=== PATIENT | male | born 1960 | race Caucasian/White ===

== ENCOUNTER 2016-09-05 07:46 | Outpatient (CLI) | payer BC ==
--- NOTE | 2016-09-05 09:10 | XRay Report ---
LUMBAR SPINE RADIOGRAPHS: INDICATION: Low back pain. COMPARISON: None similar. FINDINGS: AP, oblique and lateral lumbar spine radiographs demonstrate slight levocurvature apex about L4. Five nonrib-bearing vertebrae demonstrate preserved stature and alignment. Mild degenerative spurring throughout. Moderate mid to lower lumbar facet arthropathy. Mild to moderate L4-L5, L5-S1 and also possibly mild L1-L2 disc narrowing. Mild lower thoracic degenerative spurring as well. No evidence of a pars defect. Nonobstructive bowel gas pattern. Intact SI joints. Right inguinal hernia repair manisha. CONCLUSION: Multilevel spinal degenerative changes and right inguinal hernia repair without acute bony abnormality, as described. Please correlate. Thank you for the opportunity to participate in this patient's care.
--- NOTE | 2016-09-05 09:42 | Cat Scan Report ---
CT NECK WITHOUT CONTRAST INDICATION: Neck pain, possible mass. COMPARISON: None similar. FINDINGS: Noncontrast neck CT demonstrates preserved parapharyngeal fat pads. Small tonsillar calcifications bilaterally. Grossly normal pharynx, hypopharynx and the larynx. Normal size thyroid. Approximately 5 mm right thyroid hypodensity laterally, axial image 149, series 2. Slight aortic arch calcifications. Patent airway. Clear lung apices. No size significant adenopathy with few small neck lymph nodes noted bilaterally. Grossly normal major vessels. Normal salivary glands. Slight nasal septal bowing. Minimal frontoethmoid mucosal thickening. Clear remainder imaged paranasal sinuses and mastoid air cells. Normal eye globes. Normal imaged intracranial appearance. Mild cervical spondylosis. CONCLUSION: No definite acute significant CT abnormality on this unenhanced exam with few incidental findings, as above. Please correlate. Neck CT with contrast and utilizing skin marker may be considered for further evaluation if strong clinical suspicion for underlying pathology persists. Thank you for the opportunity to participate in this patient's care.
== END 2016-09-05 07:47 | disposition home or self-care (01) ==
LOC: CT 07:46
PROVIDERS: ATTEND Internal Medicine
DX: M47.897 Other spondylosis, lumbosacral region (principal); M47.892 Other spondylosis, cervical region; M12.88 Other specific arthropathies, not elsewhere classified, other specified site; I70.0 Atherosclerosis of aorta
CPT/HCPCS: 70490; 72110